=== PATIENT | female | born 1955 | race Caucasian/White ===

== ENCOUNTER 2018-04-28 05:41 | Emergency (ER) | payer BC ==
[~2018-04-28] VITALS: Ht 160 cm; Wt 77.3 kg
[2018-04-28] MEDS ORDERED: FLOMAX 0.40.4 MG/CAP PO (06:26)
[2018-04-28] MEDS ORDERED: FOSAMAX 70MG TA70 MG PO (06:27)
[2018-04-28] MEDS ORDERED: VITAMIND3 5000 PO (06:28)
[2018-04-28] MEDS ORDERED: NORCO 325 MG-51 TAB PO (06:52)
[2018-04-28] MEDS ORDERED: ZOFRAN 4MG T4 MG/TAB PO (06:52)
[2018-04-28 07:34] VITALS: BP 112/74; PULSE 61
== END 2018-04-28 07:45 | disposition home or self-care (01) ==
LOC: COL.ER 05:41
DX: S42.292A Other displaced fracture of upper end of left humerus, initial encounter for closed fracture (principal); W19.XXXA Unspecified fall, initial encounter; Y92.410 Unspecified street and highway as the place of occurrence of the external cause
CPT/HCPCS: J3010

== ENCOUNTER 2018-08-23 15:30 | Outpatient (RCR) | payer BC ==
[~2018-08-23 15:30] MED LIST: FLOMAX 0.40.4 MG/CAP PO; FOSAMAX 70MG TA70 MG PO; NORCO 325 MG-51 TAB PO; VITAMIND3 5000 PO; ZOFRAN 4MG T4 MG/TAB PO
== END 2018-09-14 | disposition home or self-care (01) ==
LOC: MKS.ESL.PT
DX: S42.232D 3-part fracture of surgical neck of left humerus, subsequent encounter for fracture with routine healing (principal)

== ENCOUNTER 2018-10-02 15:00 | Outpatient (RCR) | payer BC | END 2018-10-05 14:17 | disposition home or self-care (01) | LOC: MKS.ESL.PT 15:00 | DX: S42.202A Unspecified fracture of upper end of left humerus, initial encounter for closed fracture (principal); W19.XXXA Unspecified fall, initial encounter ==

== ENCOUNTER 2023-07-22 13:04 | Outpatient (RCR) | payer MEDICARE, BC ==
[~2023-07-22 13:04] MED LIST changes: +OSCAL 500 TAB500 MG PO; +PRESERVISION1 SGL PO; +PROLIA60 MG/ML SQ
== END 2023-07-27 | disposition home or self-care (01) ==
LOC: MKS.ESL.PT
DX: M25.561 Pain in right knee (principal); M25.562 Pain in left knee; G89.29 Other chronic pain

== ENCOUNTER 2023-07-29 06:55 | Day surgery (SDC) | payer MEDICARE, BC ==
[~2023-07-29] VITALS: Ht 160 cm; Wt 77.0 kg
[~2023-07-29 06:55] MED LIST changes: +LR 1,000 ML IV SCH; +Ondansetron 4 MG/2 ML VIAL IV PRN
[2023-07-29] MEDS ORDERED: CALCIUM 600600 MG PO (07:08)
[2023-07-29] MEDS ORDERED: VITAMIN D362.5 MC1 PO (07:09)
[2023-07-29] MEDS ORDERED: CARDI-OMEGA1000 MG (07:10)
[2023-07-29] MEDS ORDERED: ICAPS AREDS SO1 EACH PO (07:10)
[2023-07-29 07:56] VITALS: BP 136/91; PULSE 90; TEMP 97.7
--- NOTE | 2023-07-29 07:58 | NUR ---
0702 Pt ambulatory to bay 5 with a steady gait, breathing even and unlabored. Pt is alert and oriented, accompanied by her . Consents reviewed and signed by pt. IV established. LR infusing via gravity. Call light in reach. Warm blanket provided.
[2023-07-29 08:45] VITALS: BP 127/64; PULSE 75; TEMP 97.8
[2023-07-29 09:00] VITALS: BP 124/69; PULSE 78
[2023-07-29 09:15] VITALS: BP 132/73; PULSE 72
--- NOTE | 2023-07-29 17:33 | NUR ---
[id number]: PT TO ENDO RECOVERY BAY FROM ENDO [facility] S/P COLONSCOPY A&O, PLACED ON MONITOR, VSS ON RA RECEIVED REPORT AND ASSUMED CARE OF PT FROM ENDO RN SPOUSE AT BEDSIDE PROVIDED FOOD/FLUIDS, TOLERATING WELL MD IN TO SEE PT POST-PROCEDURE PT HAS REMAINED A&O, NAD, VSS ON RA, TOLERATING PO, IS WITHOUT SIGNIFICANT COMPLAINT, WITH SAFE GAIT THRU OUT STAY IV D/C'D. D/C INSTRUCTIONS, ANY FOLLOW UP REVIEWED AND HANDED TO PT. ALL QUESTIONS AND CONCERNS ADDRESSED TO PT SATISFACTION. TAKEN TO EXIT VIA W/C WITH ALL BELONGINGS AND PAPERWORK IN HAND, ASSISTED INTO PASSENGER SEAT OF POV. HSB TO DRIVE HOME.
== END 2023-07-29 09:20 | disposition home or self-care (01) ==
LOC: SDCO 06:55
DX: Z12.11 Encounter for screening for malignant neoplasm of colon (principal); K62.89 Other specified diseases of anus and rectum; K64.4 Residual hemorrhoidal skin tags; K57.30 Diverticulosis of large intestine without perforation or abscess without bleeding; Z87.891 Personal history of nicotine dependence
CPT/HCPCS: J2704; J7120